=== PATIENT | male | born 1995 | race Caucasian/White ===

== ENCOUNTER 2020-09-18 12:04 | Emergency (ER) | payer MEDICAID ==
[~2020-09-18] VITALS: Ht 177.8 cm; Wt 90.9 kg
[2020-09-18] MEDS ORDERED: CEPH250T PO (12:29)
[2020-09-18 12:36] VITALS: BP 142/96
== END 2020-09-18 12:42 | disposition home or self-care (01) ==
LOC: ER 12:04
DX: S61.412A Laceration without foreign body of left hand, initial encounter (principal); Z79.2 Long term (current) use of antibiotics; W26.0XXA Contact with knife, initial encounter; Y93.89 Activity, other specified; Y92.89 Other specified places as the place of occurrence of the external cause; Y99.8 Other external cause status
CPT/HCPCS: 12002; 99283